=== PATIENT | male | born 1975 ===

== ENCOUNTER → 2021-11-09 | Outpatient (CLI) | payer OTHER ==
[2021-11-09 17:28] LABS: BASOPHILS ABSOLUTE AUTO 0.05 K/mm3 (0.00-0.23); BASOPHILS PERCENT AUTO 1 % (0-2); EOSINOPHILS ABSOLUTE AUTO 0.55 K/mm3 (0.00-0.68); EOSINOPHILS PERCENT AUTO 9 % (0-6); Hematocrit 46.1 % (37.0-53.0); Hemoglobin 15.1 g/dL (13.5-17.5); IMMATURE GRAN ABSOLUTE AUTO 0.02 K/mm3 (0.00-0.10); IMMATURE GRAN PERCENT AUTO 0 % (0-1); LYMPHOCYTES ABSOLUTE AUTO 2.09 K/mm3 (0.84-5.20); LYMPHOCYTES PERCENT AUTO 33 % (21-46); MONOCYTES ABSOLUTE AUTO 0.59 K/mm3 (0.16-1.47); MONOCYTES PERCENT AUTO 9 % (4-13); Mean Corpuscular HGB 29.8 pg (26.0-34.0); Mean Corpuscular HGB Conc 32.8 g/dL (31.5-36.5); Mean Corpuscular Volume 91 fL (80-100); Mean Platelet Volume 10.2 fL (9.1-12.4); NEUTROPHILS ABSOLUTE AUTO 2.95 K/mm3 (1.96-9.15); NEUTROPHILS PERCENT AUTO 47 % (41-73); Platelet Count 351 K/mm3 (150-400); RDW Coefficient Variation 12.6 % (11.7-14.2); RDW Standard Deviation 41.2 fL (35.1-46.3); Red Blood Cell Count 5.07 M/mm3 (4.30-5.90); White Blood Cell Count 6.25 K/mm3 (4.00-11.30)
[2021-11-09 17:44] LABS: CHOL/HDL RATIO 4.9; Cholesterol 206 mg/dL (50-200); HDL Cholesterol 42 mg/dL (>39); LDL/HDL RATIO 2.7; Low Density Lipoprotein Chol 115 mg/dL (0-110); Triglycerides 245 mg/dL (30-160); Very Low Density Lipoprot Chol 49 mg/dL (6-32)
[2021-11-09 18:21] LABS: Albumin/Globulin Ratio 1.2 (0.8-1.8); Bilirubin, Total 0.6 mg/dL (0.1-1.0); Bun/Creatinine Ratio 15.1 (12.0-20.0); Calcium, Blood 9.1 mg/dL (8.5-10.1); Creatinine, Blood 0.99 mg/dL (0.60-1.20); Globulin, Blood 3.2 g/dL (2.2-4.0); Potassium, Blood 4.3 mmol/L (3.5-5.5); Total Protein, Blood 7.2 g/dL (6.4-8.2)
[2021-11-12 09:07] LABS: HIV-1 RNA BY PCR <20 (.)
== END | disposition home or self-care (01) ==
LOC: LAB SHORT 16:26 → LAB 16:26
PROVIDERS: Internal Medicine; Nurse Practitioner Family
DX: Z51.81 Encounter for therapeutic drug level monitoring (principal); E78.5 Hyperlipidemia, unspecified; B20 Human immunodeficiency virus [HIV] disease; Z79.899 Other long term (current) drug therapy
CPT/HCPCS: 80053; 80061; 85025; 87536

== ENCOUNTER → 2021-11-21 | Outpatient (CLI) | payer OTHER ==
[2021-11-22 15:11] LABS: % CD 4 POS. LYMPH. 38.5 % (30.8-58.5); ABSOLUTE CD 4 HELPER 809 /uL (359-1519); BASO (ABSOLUTE) 0.1 x10E3/uL (0.0-0.2); BASOS 1 % (Not Estab.); EOS 4 % (Not Estab.); EOS (ABSOLUTE) 0.2 x10E3/uL (0.0-0.4); HEMATOCRIT 43.1 % (37.5-51.0); HEMOGLOBIN 14.9 g/dL (13.0-17.7); IMMATURE GRANULOCYTES 1 % (Not Estab.); LYMPHS 35 % (Not Estab.); LYMPHS (ABSOLUTE) 2.1 x10E3/uL (0.7-3.1); MCH 29.9 pg (26.6-33.0); MCHC 34.6 g/dL (31.5-35.7); MCV 86 fL (79-97); MONOCYTES 8 % (Not Estab.); MONOCYTES(ABSOLUTE) 0.5 x10E3/uL (0.1-0.9); NEUTROPHILS 51 % (Not Estab.); PLATELETS 394 x10E3/uL (150-450); RBC 4.99 x10E6/uL (4.14-5.80); RDW 12.8 % (11.6-15.4); WBC 5.9 x10E3/uL (3.4-10.8)
== END | disposition home or self-care (01) ==
LOC: LAB SHORT 10:15 → LAB 10:15
PROVIDERS: Nurse Practitioner Family
DX: Z51.81 Encounter for therapeutic drug level monitoring (principal); B20 Human immunodeficiency virus [HIV] disease
CPT/HCPCS: 86361